=== PATIENT | female | born 1970 | race Hispanic/Latino ===

== ENCOUNTER 2019-09-29 22:02 | Emergency (ER) | payer OTHER ==
[~2019-09-29] VITALS: Ht 157.5 cm; Wt 59.0 kg
[2019-09-29 22:47] LABS: BASOPHILS % 0.5 % (0.0-1.0); EOSINOPHILS # (AUTO) 0.1 (0.0-0.4); EOSINOPHILS % 1.5 % (0.0-6.0); HEMATOCRIT 41.3 % (34.2-44.1); HEMOGLOBIN 13.7 g/dL (12.0-16.0); LYMPHOCYTES # (AUTO) 2.3 (1.0-3.2); LYMPHOCYTES % 38.2 % (18.0-39.1); MEAN CORPUSCULAR HEMOGLOBIN 28.6 pg (28-32); MEAN CORPUSCULAR HGB CONC 33.2 g/dL (31-35); MEAN CORPUSCULAR VOLUME 86.2 fL (81-99); MONOCYTES # (AUTO) 0.3 (0.2-0.8); MONOCYTES % 5.6 % (4.4-11.3); NEUTROPHILS # (AUTO) 3.3 (2.1-6.9); PLATELET COUNT 265 x10e3/uL (140-360); RED BLOOD COUNT 4.79 x10e6/uL (3.6-5.1)
--- NOTE | 2019-09-29 22:51 | Emergency Department Note ---
History of Present Illnes History of Present Illness Chief Complaint: Drug Abuse/Intoxication History of Present Illness This is a 48 year old female PATIENT PRESENTED TO ER WITH PARANOIA AND ANXIETY AFTER CONSUMING A THC EDIBLE. STATES TOOK IT BECAUSE SHE WAS CURIOUS ABOUT HOW IT WOULD MAKE HER FEEL.. . 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 Mode: [place] Onset (how long ago): hour(s) (1) Location: chest Quality: paranoa, anxeity, chest pain, sob Radiation: Reports non-radiation Severity: mild Onset quality: sudden Duration (how long): hour(s) (1) Timing of current episode: constant Progression: unchanged Chronicity: new Context: Reports other (consumed a thc edible prior to symptoms starting); Denies recent illness, Denies recent surgery Relieving factors: none Exacerbating factors: none Associated symptoms: Reports chest pain, Reports shortness of breath, Reports other (anxiety, ) Treatments prior to arrival: none Past Medical/Family History Physician Review I have reviewed the patient's past medical and family history. Any updates have been documented here. Past Medical History Recent Fever: No Clinical Suspicion of Infectio: No New/Unexplained Change in Ment: No Other Medical History: PATIENT PRESENTS TO THE ER WITH COMPLAINT OF PARANOIA AND ANXIETY AFTER CONSUMING A THC EDIBLE. PATIENT IS UNABLE TO ANSWER ANY QUESTIONS ABOUT HISTORY OR MEDICATIONS. PATIENT REPEATITIVELY ASKING IS SHE IS DYING. 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) Physically hurt or threatened: No Other Last Tetanus: UNK Review of Systems Review of Systems Constitutional: Reports no symptoms EENTM: Reports no symptoms Cardiovascular: Reports as per HPI Respiratory: Reports as per HPI Gastrointestinal: Reports no symptoms Genitourinary: Reports no symptoms Musculoskeletal: Reports no symptoms Integumentary: Reports no symptoms Neurological: Reports no symptoms Psychological: Reports no symptoms Endocrine: Reports no symptoms Hematological/Lymphatic: Reports no symptoms Physical Exam Related Data Allergies: Coded Allergies: No Known Allergies (Unverified , 08/05/15) Triage Vital Signs Vital Signs Date Time Temp Pulse Resp B/P (MAP) Pulse Ox O2 Delivery O2 Flow Rate FiO2 09/29/19 22:38 98.5 99 18 132/82 99 Room Air Vital signs reviewed: Yes Physical Exam CONSTITUTIONAL Constitutional: Present well-developed, Present well-nourished, Present other (ANXIOUS) HENT HENT: Present normocephalic, Present atraumatic, Present oropharynx clear/moist, Present nose normal HENT L/R: Present left ext ear normal, Present right ext ear normal EYES Eyes: Reports PERRL, Reports conjunctivae normal NECK Neck: Present ROM normal PULMONARY Pulmonary: Present effort normal, Present breath sounds normal CARDIOVASCULAR Cardiovascular: Present regular rhythm, Present heart sounds normal, Present capillary refill normal, Present normal rate GASTROINTESTINAL Abdominal: Present soft, Present nontender, Present bowel sounds normal GENITOURINARY Genitourinary: Present exam deferred SKIN Skin: Present warm, Present dry MUSCULOSKELETAL Musculoskeletal: Present ROM normal NEUROLOGICAL Neurological: Present alert, Present oriented x 3, Present no gross motor or sensory deficits, Present other PSYCHOLOGICAL Psychological: Present judgement normal, Present other (ANXIOUS AND PARANOID) Results Laboratory Laboratory Laboratory Tests Test 09/29/19 23:00 09/29/19 22:23 Urine Color Yellow (YELLOW) Urine Clarity Clear (CLEAR) Urine pH 7 (5 - 7) Urine Specific [place] 1.015 (1.010-1.025) Urine Protein Negative (NEGATIVE) Urine Glucose (UA) Negative (NEGATIVE) Urine Ketones Negative (NEGATIVE) Urine Blood Negative (NEGATIVE) Urine Nitrite Negative (NEGATIVE) Urine Bilirubin Negative (NEGATIVE) Urine Urobilinogen 0.2 mg/dL (0.2 - 1) Urine Leukocyte Esterase Negative (NEGATIVE) Urine RBC 0-5 /HPF (0-5) Urine WBC 0-5 /HPF (0-5) Urine Epithelial Cells Few /LPF (NONE) Urine Bacteria Moderate /HPF (NONE) Urine Opiates Screen Negative (NEGATIVE) Urine Methadone Screen Negative (NEGATIVE) Urine Barbiturates Screen Negative (NEGATIVE) Urine Phencyclidine Screen Negative (NEGATIVE) Urine Amphetamines Screen Negative (NEGATIVE) Urine Methamphetamines Screen Negative (NEGATIVE) Urine Benzodiazepines Screen Negative (NEGATIVE) Urine Cocaine Screen Negative (NEGATIVE) Urine Cannabinoids Screen Positive (NEGATIVE) White Blood Count 6.07 x10e3/uL (4.8-10.8) Red Blood Count 4.79 x10e6/uL (3.6-5.1) Hemoglobin 13.7 g/dL (12.0-16.0) Hematocrit 41.3 % (34.2-44.1) Mean Corpuscular Volume 86.2 fL (81-99) Mean Corpuscular Hemoglobin 28.6 pg (28-32) Mean Corpuscular Hemoglobin Concent 33.2 g/dL (31-35) Red Cell Distribution Width 13.0 % (11.7-14.4) Platelet Count 265 x10e3/uL (140-360) Neutrophils (%) (Auto) 54.0 % (38.7-80.0) Lymphocytes (%) (Auto) 38.2 % (18.0-39.1) Monocytes (%) (Auto) 5.6 % (4.4-11.3) Eosinophils (%) (Auto) 1.5 % (0.0-6.0) Basophils (%) (Auto) 0.5 % (0.0-1.0) Neutrophils # (Auto) 3.3 (2.1-6.9) Lymphocytes # (Auto) 2.3 (1.0-3.2) Monocytes # (Auto) 0.3 (0.2-0.8) Eosinophils # (Auto) 0.1 (0.0-0.4) Basophils # (Auto) 0.0 (0.0-0.1) Absolute Immature Granulocyte (auto 0.01 x10e3/uL (0-0.1) Sodium Level 136 mmol/L (136-145) Potassium Level 3.3 mmol/L (3.5-5.1) Chloride Level 104 mmol/L (98-107) Carbon Dioxide Level 20 mmol/L (22-29) Anion Gap 15.3 mmol/L (8-16) Blood Urea Nitrogen 10 mg/dL (7-26) Creatinine 0.77 mg/dL (0.57-1.11) Estimat Glomerular Filtration Rate > 60 ML/MIN (60-) BUN/Creatinine Ratio 13 (6-25) Glucose Level 168 mg/dL (74-118) Calcium Level 9.3 mg/dL (8.4-10.2) Creatine Kinase 67 IU/L (29-168) Creatine Kinase MB 0.90 ng/mL (0-5.0) Troponin I < 0.001 ng/mL (0-0.300) Lab results reviewed: Yes Imaging Imaging results reviewed: Yes Impressions Examination: Single AP view of the chest. COMPARISON: None. INDICATION: 0D, chest burning IMPRESSION: 1. Lines and Tubes: None 2. Lungs are grossly clear. No consolidation or effusion. 3. Cardiomediastinal silhouette is normal. Pulmonary vasculature is normal. 4. No acute bony abnormalities. Signed by: Dr. Madan Elizalde M.D. 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: Interpreted by ED physician Date: Sep 29, 2019 Time: 22:20 Rhythm: sinus rhythm Rate: normal QRS axis: normal ST segments normal: Yes T waves normal: Yes Other findings: no other findings Clinical Impression: normal ECG Assessment & Plan Medical Decision Making MDM PT WITH CHEST PAIN, ANXIETY, SOB AFTER CONSUMING THC EDIBLE ABOUT AN HOUR BEFORE SYMPTOMS STARTED, CBC, BMP, EKG, CARDIAC ENZYMES, UA, UDS ORDERED TO EVAL FOR MYOCARDIAL INFARCTION, DRUG ABUSE, ELECTROLYTE ABNORMALITY, Reassessment Reassessment time: 00:09 Reassessment pt doing better, still with mild anxiety, no distress noted Assessment & Plan Final Impression: (1) Use of cannabinoid edibles (2) Cannabis-induced anxiety disorder Depart Disposition: HOME, SELF-CARE Last Vital Signs Date Time Temp Pulse Resp B/P (MAP) Pulse Ox O2 Delivery O2 Flow Rate FiO2 09/29/19 22:38 98.5 99 18 132/82 99 Room Air JACOBY HIGGINS MD Sep 29, 2019 22:51
[2019-09-29 23:06] LABS: ANION GAP 15.3 mmol/L (8-16); BLOOD UREA NITROGEN 10 mg/dL (7-26); BUN/CREATININE RATIO 13 (6-25); CALCIUM 9.3 mg/dL (8.4-10.2); CARBON DIOXIDE 20 mmol/L (22-29); CHLORIDE 104 mmol/L (98-107); CREATINE KINASE 67 IU/L (29-168); CREATININE, SERUM 0.77 mg/dL (0.57-1.11); EST GLOMERULAR FILTRATION RATE > 60 ML/MIN (60-); GLUCOSE 168 mg/dL (74-118); POTASSIUM 3.3 mmol/L (3.5-5.1); SODIUM 136 mmol/L (136-145)
--- NOTE | 2019-09-29 23:31 | Diagnostic Imaging Report ---
Examination: Single AP view of the chest. COMPARISON: None. INDICATION: 0D, chest burning IMPRESSION: 1. Lines and Tubes: None 2. Lungs are grossly clear. No consolidation or effusion. 3. Cardiomediastinal silhouette is normal. Pulmonary vasculature is normal. 4. No acute bony abnormalities. Signed by: Dr. Barber Shields M.D. on 09/29/2019 11:27 PM
[2019-09-29 23:47] LABS: AMPHETAMINES SCREEN,URINE NEGATIVE (NEGATIVE); BENZODIAZEPINES SCREEN,URINE NEGATIVE (NEGATIVE); BILIRUBIN,URINE NEGATIVE (NEGATIVE); CLARITY,URINE CLEAR (CLEAR); COLOR,URINE YELLOW (YELLOW); KETONES,URINE NEGATIVE (NEGATIVE); LEUKOCYTE ESTERASE ,URINE NEGATIVE (NEGATIVE); NITRITE,URINE NEGATIVE (NEGATIVE); PHENCYCLIDINE SCREEN,URINE NEGATIVE (NEGATIVE); PROTEIN,URINE DIPSTICK NEGATIVE (NEGATIVE); URINE UROBILINOGEN 0.2 mg/dL (0.2 - 1)
[2019-09-29 23:55] LABS: BACTERIA,URINE MODERATE /HPF; EPITHELIAL CELLS,URINE FEW /LPF; RBC,URINE 0-5 /HPF (0-5); WBC,URINE (MAN) 0-5 /HPF (0-5)
== END 2019-09-30 01:20 | disposition home or self-care (01) ==
LOC: ER 22:40
DX: F12.980 Cannabis use, unspecified with anxiety disorder (principal); R07.89 Other chest pain; R06.02 Shortness of breath
CPT/HCPCS: 36415; 71045; 80048; 80307; 81001; 82550; 82553; 84484; 85025; 93005; 99284

== ENCOUNTER 2024-10-12 07:36 | Emergency (ER) | payer SELFPAY ==
[~2024-10-12] VITALS: Ht 157.5 cm; Wt 66.7 kg
[2024-10-12 07:43] VITALS: TEMP 97.7
[2024-10-12 08:03] LABS: BASOPHILS % 0.3 % (0.0-1.0); EOSINOPHILS % 0.7 % (0.0-6.0); LYMPHOCYTES % 31.5 % (18.0-39.1); MONOCYTES % 3.5 % (4.4-11.3); NEUTROPHILS % 63.9 % (38.7-80.0); RED CELL DISTRIBUTION WIDTH 13.0 % (11.7-14.4)
[2024-10-12 08:23] LABS: EST GLOMERULAR FILTRATION RATE 81.0 ML/MIN (>=60)
[2024-10-12] MEDS: METOCLOPRAMIDE HCL 10 MG/2ML VIAL IV ONE (08:24)
[2024-10-12] MEDS: KETOROLAC TROMETHAMINE 30 MG/ML VIAL IV STA (08:24)
[2024-10-12] MEDS: DIPHENHYDRAMINE HCL 25 MG CAP PO ONE (08:24)
[2024-10-12] MEDS: SODIUM CHLORIDE 0.9% 1000ML 1,000 ML IV SCH (08:24)
[2024-10-12 09:00] LABS: EPITHELIAL CELLS,URINE MODERATE /LPF; LEUKOCYTE ESTERASE ,URINE NEGATIVE (NEGATIVE); PROTEIN,URINE DIPSTICK NEGATIVE (NEGATIVE); URINE UROBILINOGEN 0.2 mg/dL (0.2 - 1)
[2024-10-12 09:15] VITALS: PULSE 90; RESP 16; O2SAT 100
== END 2024-10-12 09:18 | disposition home or self-care (01) ==
LOC: ER 07:53
DX: R51.9 Headache, unspecified (principal); R11.2 Nausea with vomiting, unspecified; R42 Dizziness and giddiness; K21.9 Gastro-esophageal reflux disease without esophagitis; F41.9 Anxiety disorder, unspecified
CPT/HCPCS: 36415; 70450; 80053; 81001; 84484; 85025; 93005; 99284; J1885; J2765; J7030